=== PATIENT | female | born 1970 | race Caucasian/White ===

== ENCOUNTER 2020-08-09 22:37 | Emergency (ER) | payer OTHER ==
[~2020-08-09 22:37] MED LIST: ZOFRAN ODT 4 MG4 MG SL
[2020-08-09 23:49] LABS: HEMOGLOBIN 15.9 gm/dl (12.3-15.3); RED BLOOD COUNT 4.89 M/UL (4.00-5.10); WHITE BLOOD COUNT 12.9 K/UL (4.5-11.0)
[2020-08-10 00:06] LABS: BUN/CREATININE RATIO 18 (0-10)
== END 2020-08-10 01:45 | disposition home or self-care (01) ==
LOC: ER1 22:37
PROVIDERS: Physician Assistant
DX: R51.9 Headache, unspecified (principal); I10 Essential (primary) hypertension; Z90.710 Acquired absence of both cervix and uterus; Z88.2 Allergy status to sulfonamides; F17.210 Nicotine dependence, cigarettes, uncomplicated
CPT/HCPCS: 70450; 80053; 80307; 81001; 83735; 85025; 87086; 96374; 96375; 99284; J1100; J1200; J1885; J2405